=== PATIENT | female | born 1975 | race Caucasian/White ===

== ENCOUNTER 2016-12-11 10:28 | Observation (INO) | payer OTHER ==
[~2016-12-11] VITALS: Ht 157.5 cm; Wt 62.0 kg
[~2016-12-11 10:28] MED LIST: BACT800T5 PO; FLUT1SPR9 EACH NARE; IBUP600T26 PO; ZYRT10TA12 PO
[2016-12-11 10:39] VITALS: BP 135/75; PULSE 85; RESP 16; TEMP 98.8; O2SAT 100
[2016-12-11 11:15] VITALS: O2SAT 100
[2016-12-11] MEDS ORDERED: SODIUM CHLORIDE 0.9% FLUSH 10 ML FLUSH IVF PRN (11:15)
[2016-12-11 11:27] LABS: AUTOMATED NEUTROPHIL # 5.4 TH/MM3 (1.8-7.7); BASOPHIL % 0.5 % (0.0-2.0); EOSINOPHIL # 0.1 TH/MM3 (0-0.4); EOSINOPHIL % 1.4 % (0.0-4.0); HEMATOCRIT 42.8 % (35.0-46.0); HEMO FLAGS DIFF FINAL; LYMPH % 23.1 % (9.0-44.0); LYMPHOCYTE # 1.7 TH/MM3 (1.0-4.8); MEAN CELL VOLUME 87.2 FL (80.0-100.0); MEAN CORPUSCULAR HEMOGLOBIN 28.7 PG (27.0-34.0); MEAN CORPUSCULAR HGB CONC 32.9 % (32.0-36.0); MONO % 4.3 % (0.0-8.0); NEUT % 70.7 % (16.0-70.0); PLATELET COUNT 273 TH/MM3 (150-450); RED BLOOD COUNT 4.91 MIL/MM3 (4.00-5.30); RED CELL DISTRIBUTION WIDTH 12.9 % (11.6-17.2); WHITE BLOOD COUNT 7.5 TH/MM3 (4.0-11.0)
[2016-12-11 11:35] LABS: CHLORIDE 103 MEQ/L (98-107); POTASSIUM 3.5 MEQ/L (3.5-5.1); SODIUM (NA) 139 MEQ/L (136-145)
[2016-12-11 11:39] LABS: ANION GAP 8 MEQ/L (5-15); BICARBONATE 28.3 MEQ/L (21.0-32.0); BLOOD UREA NITROGEN 14 MG/DL (7-18)
--- NOTE | 2016-12-11 11:39 | RADRPT ---
EXAM DATE/TIME: 12/11/2016 11:18 [place] COMPARISON: CHEST SINGLE AP, July 12, 2015, 13:31. INDICATIONS : Chest pain started last night. MEDICAL HISTORY : None. SURGICAL HISTORY : None. ENCOUNTER: Initial ACUITY: 1 day PAIN SCORE: 5/10 LOCATION: Left upper chest FINDINGS: A single view of the chest demonstrates the lungs to be symmetrically aerated without evidence of mas s, infiltrate or effusion. The cardiomediastinal contours are unremarkable. Osseous structures are intact. CONCLUSION: No acute disease. Levi Ellis MD FACR on December 11, 2016 at 11:37 Board Certified Radiologist. This report was verified electronically.
[2016-12-11 11:42] LABS: ALT (GPT) 21 U/L (10-53); AST (GOT) 11 U/L (15-37); GLOMERULAR FILTRATION RATE 85 ML/MIN (>89)
[2016-12-11 11:43] LABS: TOTAL BILIRUBIN ADULT 0.7 MG/DL (0.2-1.0)
[2016-12-11 11:44] LABS: ALKALINE PHOSPHATASE 61 U/L (45-117)
[2016-12-11 12:04] VITALS: BP_SYST 140; BP_DIAS 74; BP_DIAS 75; PULSE 87; RESP 18; O2SAT 97
--- NOTE | 2016-12-11 12:14 | PD ---
HPI Chief Complaint: Dizziness Time Seen by Provider: 11:07 Travel History International Travel<30 days: No Contact w/Intl Traveler<30days: No Traveled to known affect area: No History of Present Illness HPI This is a 41-year-old female who presents to the emergency department with escalating chest discomfort in the left side of her chest, moderate severity feeling like a pressure and a tightness in her chest, nonradiating. She says the chest pain got worse at work this morning and she felt dizzy, lightheaded, short of breath and nauseous. This is the worst it's ever been. She also has chronic problems in her upper abdomen which her doctor has been looking into. She denies any history of hypertension, hyperlipidemia, diabetes or family history of heart disease. PFSH Past Medical History Anxiety: Yes Cardiovascular Problems: Yes (HEART PALPATIONS) Diminished Hearing: No GERD: Yes Integumentary: Yes (ECZEMA) Immunizations Current: Yes Tetanus Vaccination: Unknown Influenza Vaccination: No ?: Not LMP: 12/03/16 : 3 Para: 3 Tubal Ligation: Yes (2009) Past Surgical History Section: Yes (X2) Other Surgery: Yes (BREAST AUGMENTATION REDUCTION) Social History Alcohol Use: Yes (SOCAIL) Tobacco Use: Yes (02/26 pk) Substance Use: No Allergies-Medications (Allergen,Severity, Reaction): Coded Allergies: lactose (Unverified Allergy, Mild, Rash, 12/11/16) Reported Meds & Prescriptions Reported Meds & Active Scripts Active No Active Prescriptions or Reported Medications Review of Systems Except as stated in HPI: all other systems reviewed are Neg Physical Exam Narrative GENERAL:Well appearing, no acute distress SKIN: Focused skin assessment warm and dry. HEAD: Atraumatic. Normocephalic. EYES: Pupils equal and round. No injection or drainage. ENT: Moist mucous membranes NECK: Trachea midline. CARDIOVASCULAR: Regular rate and rhythm. No murmur appreciated. RESPIRATORY: Clear to auscultation. Breath sounds equal bilaterally. GASTROINTESTINAL: Abdomen soft, non-tender, nondistended. MUSCULOSKELETAL: No obvious deformities. NEUROLOGICAL: Awake and alert. No obvious cranial nerve deficits. Moving all extremities. PSYCHIATRIC: Appropriate mood and affect; insight and judgment normal. Data Data Last Documented VS Vital Signs Date Time Temp Pulse Resp B/P (MAP) Pulse Ox O2 Delivery O2 Flow Rate FiO2 12/11/16 12:04 87 18 140/74 (96) 97 Room Air 140/75 (96) 12/11/16 10:39 98.8 Orders Orders Electrocardiogram (12/11/16 11:15) Complete Blood Count With Diff (12/11/16 11:15) Comprehensive Metabolic Panel (12/11/16 11:15) Troponin I (12/11/16 11:15) Chest, Single Ap (12/11/16 11:15) Ecg Monitoring (12/11/16 11:15) Bilateral Bp Monitoring (12/11/16 11:15) Iv Access Insert/Monitor (12/11/16 11:15) Oximetry (12/11/16 11:15) Oxygen Administration (12/11/16 11:15) Sodium Chloride 0.9% Flush (Ns Flush) (12/11/16 11:15) Lipase (12/11/16 11:15) Place In Observation (12/11/16 ) Vital Signs (Adult) MYA.Q4H (12/11/16 12:06) Activity Bed Rest (12/11/16 12:06) Seal Delivery Vehicle Officer / Telemetry MYA.Q8H (12/11/16 12:06) Diet Heart Healthy (12/11/16 Lunch) Aspirin Chew (Aspirin Chew) (12/11/16 12:15) Admit Order (Ed Use Only) (12/11/16 ) Vital Signs (Adult) Q4H (12/11/16 12:06) Activity Oob With Assistance (12/11/16 12:06) Notify Dr: Other (12/11/16 12:06) Labs Laboratory Tests Test 12/11/16 11:18 White Blood Count 7.5 TH/MM3 Red Blood Count 4.91 MIL/MM3 Hemoglobin 14.1 GM/DL Hematocrit 42.8 % Mean Corpuscular Volume 87.2 FL Mean Corpuscular Hemoglobin 28.7 PG Mean Corpuscular Hemoglobin Concent 32.9 % Red Cell Distribution Width 12.9 % Platelet Count 273 TH/MM3 Mean Platelet Volume 9.2 FL Neutrophils (%) (Auto) 70.7 % Lymphocytes (%) (Auto) 23.1 % Monocytes (%) (Auto) 4.3 % Eosinophils (%) (Auto) 1.4 % Basophils (%) (Auto) 0.5 % Neutrophils # (Auto) 5.4 TH/MM3 Lymphocytes # (Auto) 1.7 TH/MM3 Monocytes # (Auto) 0.3 TH/MM3 Eosinophils # (Auto) 0.1 TH/MM3 Basophils # (Auto) 0.0 TH/MM3 CBC Comment DIFF FINAL Differential Comment Blood Urea Nitrogen 14 MG/DL Creatinine 0.75 MG/DL Random Glucose 89 MG/DL Total Protein 7.6 GM/DL Albumin 4.2 GM/DL Calcium Level 9.0 MG/DL Alkaline Phosphatase 61 U/L Aspartate Amino Transf (AST/SGOT) 11 U/L Alanine Aminotransferase (ALT/SGPT) 21 U/L Total Bilirubin 0.7 MG/DL Sodium Level 139 MEQ/L Potassium Level 3.5 MEQ/L Chloride Level 103 MEQ/L Carbon Dioxide Level 28.3 MEQ/L Anion Gap 8 MEQ/L Estimat Glomerular Filtration Rate 85 ML/MIN Troponin I LESS THAN 0.02 NG/ML Lipase 144 U/L MDM Medical Decision Making Medical Screen Exam Complete: Yes Emergency Medical Condition: Yes Interpretation(s) EKG: Normal sinus rhythm with no ST changes No leukocytosis Electrolytes are reassuring Troponin is normal Lipase is normal Chest x-ray: No acute process Differential Diagnosis Acute coronary syndrome, pancreatitis, gastritis, GERD, cholelithiasis Narrative Course This is a 41-year-old female who presents to the emergency department reporting chest discomfort, dizziness, nausea and shortness of breath. It's worse and this morning. She does have a smoking history. EKG is reassuring. Labs are obtained which were unremarkable. Her heart score is 1. I discussed with the patient that she likely has a less than 2% risk of adverse event in the next 6 weeks. Her personal risk tolerance is such that she would prefer to stay in the hospital for serial cardiac enzymes which I think is reasonable. Patient will be placed in observation in the chest pain center. Diagnosis Primary Impression: Chest pain Qualified Codes: R07.9 - Chest pain, unspecified Admitting Information Admitting Physician Requests: Observation Scripts No Active Prescriptions or Reported Meds Rosette Turner MD Dec 11, 2016 12:14
[2016-12-11] MEDS ORDERED: ASPIRIN 81 MG CHEW TAB CHEW ONE (12:15)
--- NOTE | 2016-12-11 13:38 | EKG ---
Date Performed: 12/11/2016 Time Performed: 11:43:47 PTAGE: 41 years EKG: Sinus rhythm POSSIBLE RIGHT VENTRICULAR CONDUCTION DELAY BORDERLINE ECG PREVIOUS TRACING : 03/28/2013 14.27 DOCTOR: Phillip Greenfield Interpretating Date/Time 12/11/2016 13:37:29
--- NOTE | 2016-12-11 13:49 | PD ---
Data Data Last Documented VS Vital Signs Date Time Temp Pulse Resp B/P (MAP) Pulse Ox O2 Delivery O2 Flow Rate FiO2 12/11/16 12:04 87 18 140/74 (96) 97 Room Air 140/75 (96) 12/11/16 10:39 98.8 Orders Orders Electrocardiogram (12/11/16 11:15) Complete Blood Count With Diff (12/11/16 11:15) Comprehensive Metabolic Panel (12/11/16 11:15) Troponin I (12/11/16 11:15) Chest, Single Ap (12/11/16 11:15) Ecg Monitoring (12/11/16 11:15) Bilateral Bp Monitoring (12/11/16 11:15) Iv Access Insert/Monitor (12/11/16 11:15) Oximetry (12/11/16 11:15) Oxygen Administration (12/11/16 11:15) Sodium Chloride 0.9% Flush (Ns Flush) (12/11/16 11:15) Lipase (12/11/16 11:15) Place In Observation (12/11/16 ) Vital Signs (Adult) MYA.Q4H (12/11/16 12:06) Activity Bed Rest (12/11/16 12:06) Therapist / Telemetry MYA.Q8H (12/11/16 12:06) Diet Heart Healthy (12/11/16 Lunch) Aspirin Chew (Aspirin Chew) (12/11/16 12:15) Admit Order (Ed Use Only) (12/11/16 ) Vital Signs (Adult) Q4H (12/11/16 12:06) Activity Oob With Assistance (12/11/16 12:06) Notify Dr: Other (12/11/16 12:06) Labs Laboratory Tests Test 12/11/16 11:18 White Blood Count 7.5 TH/MM3 Red Blood Count 4.91 MIL/MM3 Hemoglobin 14.1 GM/DL Hematocrit 42.8 % Mean Corpuscular Volume 87.2 FL Mean Corpuscular Hemoglobin 28.7 PG Mean Corpuscular Hemoglobin Concent 32.9 % Red Cell Distribution Width 12.9 % Platelet Count 273 TH/MM3 Mean Platelet Volume 9.2 FL Neutrophils (%) (Auto) 70.7 % Lymphocytes (%) (Auto) 23.1 % Monocytes (%) (Auto) 4.3 % Eosinophils (%) (Auto) 1.4 % Basophils (%) (Auto) 0.5 % Neutrophils # (Auto) 5.4 TH/MM3 Lymphocytes # (Auto) 1.7 TH/MM3 Monocytes # (Auto) 0.3 TH/MM3 Eosinophils # (Auto) 0.1 TH/MM3 Basophils # (Auto) 0.0 TH/MM3 CBC Comment DIFF FINAL Differential Comment Blood Urea Nitrogen 14 MG/DL Creatinine 0.75 MG/DL Random Glucose 89 MG/DL Total Protein 7.6 GM/DL Albumin 4.2 GM/DL Calcium Level 9.0 MG/DL Alkaline Phosphatase 61 U/L Aspartate Amino Transf (AST/SGOT) 11 U/L Alanine Aminotransferase (ALT/SGPT) 21 U/L Total Bilirubin 0.7 MG/DL Sodium Level 139 MEQ/L Potassium Level 3.5 MEQ/L Chloride Level 103 MEQ/L Carbon Dioxide Level 28.3 MEQ/L Anion Gap 8 MEQ/L Estimat Glomerular Filtration Rate 85 ML/MIN Troponin I LESS THAN 0.02 NG/ML Lipase 144 U/L MDM Supervised Visit with AISHA: Yes Narrative Course The history, exam, and medical decision-making in the associated midlevel provider note were completed with my assistance. I reviewed and agree with the findings presented. I attest that I had a [id number] encounter with the patient on the same day, and personally performed and documented my assessment and findings in the medical record. *My assessment and Findings: This is a 41-year-old female who presents to the emergency department with chest discomfort, dizziness and nausea. She does have a smoking history. EKG is nonischemic. Labs are all reassuring including troponin which are negative 2. Patient initially was going to be admitted for observation but then she decided she wants to follow-up with her primary care physician. I think this is very reasonable as she is quite low risk. She'll return to the emergency department if she has worsening symptoms. Diagnosis Primary Impression: Chest pain Qualified Codes: R07.9 - Chest pain, unspecified Patient Instructions: General Instructions Additional Instruction: If you develop severe chest pain, shortness of breath, sweating, lightheadedness , dizziness or difficulty breathing return to the emergency department immediately. Followup with your primary care physician in 2-3 days if your symptoms are not resolved. Med/Other Pt SpecificInfo: No Change to Meds Scripts No Active Prescriptions or Reported Meds Disposition: 01 DISCHARGE HOME Condition: Stable Rosette Turner MD Dec 11, 2016 13:49
[2016-12-11 14:08] VITALS: BP 125/70
--- NOTE | 2016-12-12 11:31 | EKG ---
Date Performed: 12/11/2016 Time Performed: 13:38:52 PTAGE: 41 years EKG: Sinus rhythm POSSIBLE LEFT ATRIAL ENLARGEMENT POSSIBLE RIGHT VENTRICULAR CONDUCTION DELAY BORDERLINE ECG Compared to prior tracing no significant change PREVIOUS TRACING : 12/11/2016 11.43 DOCTOR: Myles Roque Interpretating Date/Time 12/12/2016 11:27:55
== END 2016-12-11 14:11 | disposition home or self-care (01) ==
LOC: PHED 10:28 → PHEDA 12:06 → UNDOADMOB 12:07 → PHEDA 12:07 → PHED 14:11
PROVIDERS: ADMIT Hospitalist; ATTEND Hospitalist
DX: R07.89 Other chest pain (principal); R42 Dizziness and giddiness; R11.0 Nausea; Z87.891 Personal history of nicotine dependence
CPT/HCPCS: 71010; 80053; 83690; 84484; 85025; 93005; 99285; G0378